=== PATIENT | male | born 1990 | race Caucasian/White ===

== ENCOUNTER 2019-09-12 05:16 | Emergency (ER) | payer OTHER ==
[2019-09-12 05:47] VITALS: TEMP 98.9; BMI 25.0
--- NOTE | 2019-09-12 05:53 | PDOC ---
Attending Attestation - Resident Resident Name: Leta Boydica - ED Attending Attestation I have performed the following: I have examined & evaluated the patient, The case was reviewed & discussed with the resident, I agree w/resident's findings & plan - HPI HPI: 09/12/19 05:53 Pt comes with a cough and cold. - Physicial Exam PE: 09/12/19 23:56 Agree with resident exam. Pt is dehydrated and has had little to eat and appears weak and tired. 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 Heart and lungs Clear abd and flank normal and NT HEENT normal neuro intact - Medical Decision Making 09/12/19 07:11 CHEM PENDING; FLU NEGATIVE CBC NORMAL HOME WITH PMD FOLLOW UP 09/12/19 23:58 Hydrated and meds given; pt feels better
[2019-09-12] MEDS ORDERED: SODIUM CHLORIDE 0.9% 500 ML INFUS.BAG IV ONE (06:06)
[2019-09-12] MEDS ORDERED: ACETAMINOPHEN 1000 MG/100 ML VIAL (NON FORMULARY) IVPB ONE (06:07)
[2019-09-12] MEDS ORDERED: METOCLOPRAMIDE HCL INJECTION 10 MG/2 ML VIAL IVPUSH ONE (06:07)
[2019-09-12] MEDS ORDERED: ACETAMINOPHEN INJECTION 100 ML IVPB ONE (06:11)
[2019-09-12] MEDS ORDERED: METOCLOPRAMIDE HCL INJECTION 10 MG/2 ML VIAL ONE (06:11)
--- NOTE | 2019-09-12 06:18 | PDOC ---
History of Present Illness - General Chief Complaint: Cold Symptoms Stated Complaint: WORSENING FLU-LIKE SYMPTOMS Time Seen by Provider: 09/12/19 05:51 - History of Present Illness Initial Comments: 09/12/19 06:15 29 y/o male with no significant reported PMHx presents with subjective fever, body ache and headache since Friday evening. Multiple episodes of NBNB emesis yesterday. Evaluated at [facility] yesterday where he tested positive for the flu and given a prescription for an unknown medication. Patient's insurance did not cover the medication and he came to the ED this morning and his symptoms worsened. Past History - Past Medical History Allergies/Adverse Reactions: Allergies Allergy/AdvReac Type Severity Reaction Status Date / Time Penicillins Allergy Verified 09/12/19 05:44 shellfish derived Allergy Verified 09/12/19 05:44 Home Medications: Ambulatory Orders No Home Medications 0 dose .ROUTE UTDICT 08/29/13 Asthma: Yes - Immunization History Immunization Up to Date: No - Psycho Social/Smoking Cessation Hx Smoking History: Never smoked Have you smoked in the past 12 months: No Information on smoking cessation initiated: No Hx Alcohol Use: No Drug/Substance Use Hx: No Substance Use Type: Alcohol, Marijuana Review of Systems - Review of Systems Constitutional: Yes: Fever, Other (Body Ache). No: Chills HEENTM: No: Blurred Vision, Double Vision Respiratory: Yes: Cough. No: Shortness of Breath, Wheezing Cardiac (ROS): No: Chest Pain, Lightheadedness, Palpitations, Syncope ABD/GI: Yes: Nausea, Vomiting. No: Constipated, Diarrhea *Physical Exam - Vital Signs Last Vital Signs Temp Pulse Resp BP Pulse Ox 98.9 F 89 20 119/72 99 09/12/19 05:45 09/12/19 05:45 09/12/19 05:45 09/12/19 05:45 09/12/19 05:45 - Physical Exam General Appearance: Yes: Nourished, Appropriately Dressed HEENT: positive: Normal Voice, Hearing Grossly Normal Neck: positive: Trachea midline, Supple Respiratory/Chest: positive: Lungs Clear, Normal Breath Sounds Cardiovascular: positive: S1, S2 Gastrointestinal/Abdominal: positive: Normal Bowel Sounds, Soft Extremity: positive: Normal Capillary Refill, Normal Inspection Integumentary: positive: Normal Color, Dry, Warm ED Treatment Course - LABORATORY CBC & Chemistry Diagram: 09/12/19 06:10 09/12/19 06:10 Medical Decision Making - Medical Decision Making 09/12/19 06:24 29 y/o male with acute onset of fever, headache, body aches. H/o Influenza positive testing @ [facility] - Influenza swab - CBC, CMP - IV fluids, Tylenol, Reglan 09/12/19 06:48 No leukocytosis Influenza pending 09/12/19 06:52 Influenza negative CMP pending 09/12/19 07:04 Patient signed out to Dr. Glover (PGY-3) for management. Discharge - Discharge Information Problems reviewed: Yes Clinical Impression/Diagnosis: Viral URI - Follow up/Referral Referrals: Isabela Callahan MD [Primary Care Provider] - - Patient Discharge Instructions - Post Discharge Activity
[2019-09-12 06:32] LABS: BASO % 0.7 % (0-2.0); EOS % 0.5 % (0-4.5); HEMATOCRIT 41.6 % (35.4-49); HEMOGLOBIN 14.6 GM/dL (11.7-16.9); LYMPH % 30.4 % (8-40); MCH 28.3 pg (25.7-33.7); MCHC 35.2 g/dl (32.0-35.9); MEAN CELL VOLUME 80.4 fl (80-96); MONO % 16.7 % (3.8-10.2); NEUT % 51.7 % (42.8-82.8); PLATELET COUNT 144 K/MM3 (134-434); RBC 5.17 M/mm3 (4.00-5.60); RDW 13.8 % (11.9-15.9); WHITE BLOOD COUNT 3.8 K/mm3 (4.0-10.0)
[2019-09-12] MEDS ORDERED: KETOROLAC TROMETHAMINE 30 MG/1 ML VIAL IVPUSH ONE (06:42)
[2019-09-12] MEDS ORDERED: KETOROLAC TROMETHAMINE 30 MG/1 ML VIAL ONE (06:46)
[2019-09-12 07:03] VITALS: BP 117/81; PULSE 93
--- NOTE | 2019-09-12 07:25 | PDOC ---
*Physical Exam - Vital Signs Last Vital Signs Temp Pulse Resp BP Pulse Ox 98.9 F 93 H 18 117/81 98 09/12/19 05:45 09/12/19 07:02 09/12/19 07:02 09/12/19 07:02 09/12/19 07:02 ED Treatment Course - LABORATORY CBC & Chemistry Diagram: 09/12/19 06:10 09/12/19 06:10 - ADDITIONAL ORDERS Additional order review: 09/12/19 06:10 RBC 5.17 MCV 80.4 MCHC 35.2 RDW 13.8 MPV 8.0 Neutrophils % 51.7 D Lymphocytes % 30.4 D Monocytes % 16.7 H D Eosinophils % 0.5 Basophils % 0.7 - Medications Given in the ED: ED Medications Discontinued Medications Generic Name Dose Route Start Last Admin Trade Name Yomiq PRN Reason Stop Dose Admin Acetaminophen 1,000 mg 09/12/19 06:07 09/12/19 06:20 Ofirmev Injection - IVPB 09/12/19 06:08 1,000 mg ONCE ONE Administration Ketorolac Tromethamine 30 mg 09/12/19 06:42 09/12/19 06:48 Toradol Injection - IVPUSH 09/12/19 06:43 30 mg ONCE ONE Administration Metoclopramide HCl 10 mg 09/12/19 06:07 09/12/19 06:20 Reglan Injection - IVPUSH 09/12/19 06:08 10 mg ONCE ONE Administration Sodium Chloride 1,000 ml 09/12/19 06:06 09/12/19 06:20 Normal Saline - IV 09/12/19 06:07 1,000 ml ONCE ONE Administration Medical Decision Making - Medical Decision Making 09/12/19 07:[address] Boyd. Patient is a 29 yo male w/ recent positive flu dx who presents for evaluation of viral symptoms. Patient well appearing upon exam with negative labs as below. Patient reporting resolution of symptoms and would like to go home. No concern for acute process at this time and patient will f/u w/ PCP for further evaluation as needed. Discharging to home. Discharge - Discharge Information Problems reviewed: Yes Clinical Impression/Diagnosis: Viral URI Disposition: HOME - Additional Discharge Information Prescriptions: Albuterol Sulfate Inhaler - [Ventolin HFA Inhaler -] 2 inh PO Q6H #1 inh - Follow up/Referral Referrals: Isabela Callahan MD [Primary Care Provider] - - Patient Discharge Instructions Patient Printed Discharge Instructions: DI for Viral Upper Respiratory Infection -- Adult Additional Instructions: You were evaluated today in the ER. We performed labs with no concerning findings and believe you are safe for discharge at this time. Please follow-up with primary care provider as discussed for further evaluation. You may take over the counter motrin or tylenol per package instructions for fever control. Return to ER if any pain, fever, chills, or other concerning symptoms. - Post Discharge Activity
[2019-09-12 07:26] LABS: BILIRUBIN,TOTAL 0.3 mg/dL (0.2-1); BLOOD UREA NITROGEN 12.9 mg/dL (7-18); CALCIUM 8.9 mg/dL (8.5-10.1); CREATININE 1.2 mg/dL (0.55-1.3); POTASSIUM 3.9 mmol/L (3.5-5.1)
== END 2019-09-12 07:45 | disposition home or self-care (01) ==
LOC: JER 05:16
PROC: 3E0333Z Introduction of Anti-inflammatory into Peripheral Vein, Percutaneous Approach (ICD-10-PCS; principal; 2019-09-12)
DX: J06.9 Acute upper respiratory infection, unspecified (principal); B97.89 Other viral agents as the cause of diseases classified elsewhere
CPT/HCPCS: 36415; 80053; 85025; 87804; 96374; 99284-25; J0131